=== PATIENT | female | born 1985 | race Caucasian/White ===

== ENCOUNTER 2018-03-01 15:45 | Emergency (ER) | payer OTHER, MEDICAID, SELFPAY | END 2018-03-01 17:01 | disposition home or self-care (01) | DX: Z71.1 Person with feared health complaint in whom no diagnosis is made (principal) | CPT/HCPCS: 99284 ==

== ENCOUNTER 2018-04-10 12:24 | Emergency (ER) | payer OTHER, MEDICAID, SELFPAY ==
[2018-04-10 13:08] VITALS: BP 101/67; PULSE 115; RESP 14; TEMP 37; BMI 21.9
[2018-04-10 13:30] LABS: Bacteria Urine None Seen
[2018-04-10 13:38] LABS: Culture Indicated Urine Cult Not Indicated; RBC Urine 1-5/HPF (0-5/HPF); Squamous Epithelial Cell Urine 5-10 /HPF; WBC Urine 5-10/HPF (0-5/HPF)
--- NOTE | 2018-04-10 13:56 | ED.FEMALEGU ---
HPI - Female Genitourinary <HEAVEN Amador - Last Filed: 04/10/18 19:54> General Chief complaint: Urogenital-Female Stated complaint: POSSIBLE KIDNEY INFECTION Time Seen by Provider: 04/10/18 13:56 Source: patient Mode of arrival: ambulatory History of Present Illness HPI Narrative: Patient presents with smelly urination. She states she has had a kidney infection before and does not think that is to that point yet, but is worried that it will be if she does not treat it. She denies any fevers, nausea, vomiting, diarrhea. She states she has not had a bowel movement since last week. She complains of bloatedness in her stomach. She denies any flank pain. However she states her entire abdomen feels tight. She denies any abdominal pain. She does admit to using both heroin and meth right before coming to the emergency department. She states she gets constipated because of her heroin use, in usually takes care of it with laxatives and high-fiber foods. However she notes that she forgot how long it has been that she has not had a bowel movement. She states that she is still passing gas and has done so today. Related Data Previous Rx's Medication Instructions Recorded nitrofurantoin monohyd/m-cryst 1 cap PO Q12H 7 Days #14 cap 04/10/18 [Macrobid] polyethylene glycol 3350 [Miralax] 17 gram PO DAILY PRN #119 gram NS 04/10/18 Allergies Allergy/AdvReac Type Severity Reaction Status Date / Time No Known Drug Allergies Allergy Verified 03/16/18 21:05 Review of Systems <HEAVEN Amador - Last Filed: 04/10/18 19:54> Review of Systems GENERAL: See HPI HEENT: Denies sinus pain, ear pain, sore throat, difficulty swallowing, dizziness. RESPIRATORY: Denies dyspnea, cough, wheezing, hemoptysis, sputum. CARDIOVASCULAR: Denies chest pain, palpitations, orthopnea, edema, GASTROINTESTINAL: See HPI : See HPI MUSCULOSKELETAL: denies weakness, joint pain, or bony pain SKIN: Denies rash, skin lesions, or other NEUROLOGIC: Denies weakness, headache, numbness, change in speech, confusion, seizures, incoordination. PSYCHIATRIC: No concerning psychosocial issues. 12 point review of systems is negative except for those stated above Exam <HEAVEN Amador - Last Filed: 04/10/18 19:54> Narrative Exam Narrative: GENERAL: This is a well-nourished, well-developed patient, in mild distress. HEAD: Atraumatic. Normocephalic. No temporal or scalp tenderness. EYES: Pupils equal round and reactive. Extraocular motions intact. No scleral icterus. No injection or drainage. ENT: Nose without bleeding, purulent drainage or septal hematoma. Throat without erythema, tonsillar hypertrophy or exudate. Uvula midline. Airway patent. NECK: Trachea midline. No JVD or lymphadenopathy. Supple, nontender, no meningeal signs. CARDIOVASCULAR: Regular rate and rhythm without murmurs, gallops, or rubs. RESPIRATORY: Clear to auscultation. Breath sounds equal bilaterally. No wheezes, rales, or rhonchi. GASTROINTESTINAL: Abdomen soft, non-tender, slightly distended, but soft. Active bowel sounds all 4 quadrants. No CVA tenderness bilaterally. No suprapubic pain on palpation. EXTREMITIES: No clubbing, cyanosis, or edema. No joint tenderness, effusion, or edema noted. BACK: Nontender without deformity or crepitance. No flank tenderness. NEURO: AOx3. SKIN: No rash or erythema. Initial Vital Signs Initial Vital Signs: Vital Signs Temperature 98.6 F 04/10/18 13:08 Pulse Rate 115 H 04/10/18 13:08 Respiratory Rate 14 04/10/18 13:08 Blood Pressure 101/67 04/10/18 13:08 <Mylene Daily DO - Last Filed: 04/11/18 07:27> Initial Vital Signs Initial Vital Signs: Vital Signs Temperature 98.6 F 04/10/18 13:08 Pulse Rate 115 H 04/10/18 13:08 Respiratory Rate 14 04/10/18 13:08 Blood Pressure 101/67 04/10/18 13:08 Course <HEAVEN Amador - Last Filed: 04/10/18 19:54> Orders Ordered: ED Orders 04/10/18 13:20 Urine Microscopic Stat 04/10/18 14:40 Urinalysis and Microscopic Stat Patient presents with ???weird swelling urine.??? She is afraid of developing a kidney infection. She used heroin and methamphetamine prior to arrival. She also complains of constipation x9 days, but has active bowel sounds and is passing gas. She gave a urine sample, but is contaminated with many squamous cells. Thus I requested a 2nd urine sample, which showed bacteria. I discussed signs and symptoms of worsening urinary tract infection including flank pain, nausea, vomiting, diarrhea or fever. I also discussed warning signs of abdominal pain, not passing gas. I discussed follow up with primary care. Vital Signs - 8 hr 04/10/18 13:08 04/10/18 15:05 Temperature 98.6 F Pulse Rate 115 H 101 H Respiratory Rate 14 14 Blood Pressure 101/67 Blood Pressure [Left Arm] 95/52 L Pulse Oximetry 100 <Mylene Daily DO - Last Filed: 04/11/18 07:27> Orders Ordered: ED Orders 04/10/18 13:20 Urine Microscopic Stat 04/10/18 14:40 Urinalysis and Microscopic Stat Vital Signs - 8 hr 04/10/18 13:08 04/10/18 15:05 Temperature 98.6 F Pulse Rate 115 H 101 H Respiratory Rate 14 14 Blood Pressure 101/67 Blood Pressure [Left Arm] 95/52 L Pulse Oximetry 100 MDM - Female Genitourinary <MOLLY Amador-BC - Last Filed: 04/10/18 19:54> Lab Data Attestation: I reviewed the patient's lab results. Lab Results 04/10/18 04/10/18 Range/Units 13:20 14:40 Urine Color Yellow Urine Appearance Clear Urine pH 7.0 (4.5-8.0) Ur Specific [place] 1.015 (1.000-1.035) Urine Protein Trace H (Negative) Urine Glucose (UA) Negative (Negative) g/dL Urine Ketones Negative (NEGATIVE) Urine Occult Blood 2+ H (Negative) Urine Nitrate Negative (Negative) Urine Bilirubin Negative (NEGATIVE) Urine Urobilinogen 1.0 (0.2) E.U./dL Ur Leukocyte Esterase Negative (NEGATIVE) Urine RBC 1-5/hpf 5-10/hpf H (0-5/HPF) Urine WBC 5-10/hpf H None seen (0-5/HPF) Ur Squamous Epith Cells 5-10 /hpf H 5-10 /hpf H Urine Bacteria None seen Moderate (10-30) H (None) Ur Culture Indicated? Cult not indicated Cult not indicated Micro UA Comment Not Reportable Not Reportable MDM Narrative Medical decision making narrative: Patient has not had a bowel movement in 9 days. She attributes this to her heroin use. However she does not have abdominal pain, is passing gas, is not vomiting, and has active bowel sounds. I gave her a prescription for MiraLax to use. She states she normally takes laxatives prior to 9 days, but forgot that she had not had a bowel movement. I am also treating her for urinary tract infection given the blood and bacteria in her urine. She does not have flank pain, is not nauseous vomiting or have diarrhea. She is afebrile as well. Thus I do not think she has a kidney infection at this time. She is slightly tachycardic with a heart rate of 115, however this can be attributed to use of methamphetamine prior to arrival. She appears well and states she feels fine. I am treating her with Macrobid b.i.d. for 7 days. Discussed follow-up and return precautions of fever, nausea vomiting diarrhea flank pain. <Mylene Daily, DO - Last Filed: 04/11/18 07:27> Lab Data Lab Results 04/10/18 04/10/18 Range/Units 13:20 14:40 Urine Color Yellow Urine Appearance Clear Urine pH 7.0 (4.5-8.0) Ur Specific [place] 1.015 (1.000-1.035) Urine Protein Trace H (Negative) Urine Glucose (UA) Negative (Negative) g/dL Urine Ketones Negative (NEGATIVE) Urine Occult Blood 2+ H (Negative) Urine Nitrate Negative (Negative) Urine Bilirubin Negative (NEGATIVE) Urine Urobilinogen 1.0 (0.2) E.U./dL Ur Leukocyte Esterase Negative (NEGATIVE) Urine RBC 1-5/hpf 5-10/hpf H (0-5/HPF) Urine WBC 5-10/hpf H None seen (0-5/HPF) Ur Squamous Epith Cells 5-10 /hpf H 5-10 /hpf H Urine Bacteria None seen Moderate (10-30) H (None) Ur Culture Indicated? Cult not indicated Cult not indicated Micro UA Comment Not Reportable Not Reportable Discharge Plan Departure Patient Disposition: Home, Self-Care Clinical Impression: Constipation, UTI (urinary tract infection) Discharge Date/Time: 04/10/18 15:15 Interventions: ED Discharge Assessment Last Done: 04/10/18 15:15 Instructions: DI for Urinary Tract Infection (UTI), DI for Constipation Activity Restrictions/Additional Instructions: I have given you a prescription for MiraLax to take once a day for constipation. I am also starting you on an antibiotic for urinary tract infection, Macrobid. Take this twice a day for 7 days. I want you to be seen again if you have any kidney pain, nausea, vomiting, diarrhea, fevers, start passing gas or have any acute abdominal pain. Prescriptions: New polyethylene glycol 3350 [Miralax] 17 gram/dose powder 17 gram PO DAILY PRN (Reason: constipation) Qty: 119 RF: 0 nitrofurantoin monohyd/m-cryst [Macrobid] 100 mg capsule 1 cap PO Q12H 7 Days Qty: 14 RF: 0 <Mylene Daily DO - Last Filed: 04/11/18 07:27> Cosign ED Attending Maddi Attestation: I was immediately available in the department for consultation. Documentation has been reviewed. I agree with assessment and plan.
--- NOTE | 2018-04-10 14:16 | PC.NURSE ---
Pt c/o low back and abdominal pain. She states she has not had a bowel movement in 9 days. She states she feels like she is having a kidney infection. She has been drinking a lot of water.
[2018-04-10 14:49] LABS: WBC Urine None Seen (0-5/HPF)
[2018-04-10 14:51] LABS: Appearance Urine UA CLEAR; Bilirubin Urine UA NEGATIVE (NEGATIVE); Color Urine UA YELLOW; Glucose Urine UA NEGATIVE (Negative); Ketones Urine UA NEGATIVE (NEGATIVE); Leukocyte Esterase Urine UA NEGATIVE (NEGATIVE); Nitrite Urine UA Negative (Negative); Occult Blood Urine UA 2+ (Negative); Protein Urine UA TRACE (Negative); Specific Gravity Urine UA 1.015 (1.000-1.035)
[2018-04-10 14:55] LABS: Bacteria Urine Moderate (10-30); RBC Urine 5-10/HPF (0-5/HPF); Squamous Epithelial Cell Urine 5-10 /HPF
[2018-04-10 14:56] LABS: Culture Indicated Urine Cult Not Indicated
[2018-04-10 15:05] VITALS: BP 95/52; PULSE 101; RESP 14; O2SAT 100
== END 2018-04-10 15:15 | disposition home or self-care (01) ==
PROVIDERS: Emergency Provider Nurse Practitioner Family
DX: N39.0 Urinary tract infection, site not specified (principal)
CPT/HCPCS: 81001; 81003; 81015; 81025; 99282; 99283

== ENCOUNTER 2018-04-16 21:20 | Emergency (ER) | payer OTHER, MEDICAID, SELFPAY ==
[2018-04-16 21:23] VITALS: BP 108/71; PULSE 104; RESP 18; TEMP 37.2; O2SAT 100; BMI 22.3
[2018-04-17] MEDS: SULFACETAMIDE 10% EYE-RIGHT
[2018-04-17 00:02] VITALS: BP 101/67; PULSE 91; RESP 16; O2SAT 100
--- NOTE | 2018-04-17 03:38 | ED_ITS ---
HPI - Eye Problem General Chief complaint: Eye Problems Stated complaint: RT EYE IS PINK AND DISCHARGE Time Seen by Provider: 04/16/18 21:33 Source: patient Mode of arrival: ambulatory Limitations: no limitations History of Present Illness HPI Narrative: Patient presents to the emergency department today with a chief complaint of 24 hr of worsening right eye irritation with redness, tearing and matting. She denies any injury or change in vision. She does wear contacts and removed her contact today chief complaint: eye pain and eye redness Onset (ago): day(s) Onset description: gradual Duration: constant Location: right eye Eye Symptoms: redness, pain and discharge Severity: mild If Pain, Quality: aching Context: contact lens use Associated symptoms: none Treatments Prior to Arrival: none Related Data Previous Rx's Medication Instructions Recorded polyethylene glycol 3350 [Miralax] 17 gram PO DAILY PRN #119 gram NS 04/10/18 Allergies Allergy/AdvReac Type Severity Reaction Status Date / Time No Known Drug Allergies Allergy Verified 03/16/18 21:05 Review of Systems Review of Systems All systems reviewed & are unremarkable except as noted in HPI and below Constitutional Denies chills, Denies fever(s), Denies lethargy and Denies weakness Eyes Denies change in vision, Reports eye discharge, Reports irritation and Denies loss of vision ENT Ears, Nose, Mouth, and Throat: Denies change in voice, Denies neck pain and Denies sore throat Cardiovascular Denies chest pain, Denies irregular heart rhythm, Denies lightheadedness, Denies palpitations, Denies dyspnea, Denies dyspnea on exertion and Denies orthopnea Respiratory Denies cough, Denies dyspnea, Denies dyspnea on exertion and Denies wheezing Gastrointestinal Gastrointestinal: Denies abdominal pain, Denies change in bowel habits, Denies diarrhea, Denies nausea and Denies vomiting Genitourinary Denies hematuria, Denies flank pain, Denies urinary incontinence and Denies urinary urgency Musculoskeletal Denies neck pain Integumentary/Breasts Denies pruritus, Denies erythema, Denies rash and Denies wounds Neurologic Denies confusion, Denies loss of vision and Denies weakness Psychiatric Denies anxiety, Denies confusion, Denies depression, Denies homicidal ideation and Denies suicidal ideation Endocrine Denies palpitations Hematologic/Lymphatic Denies easy bruising Allergic/Immunologic Denies wheezing PFSH Social History Smoking Status: Current some day smoker Exam Initial Vital Signs Initial Vital Signs: Vital Signs Temperature 98.9 F 04/16/18 21:23 Pulse Rate 104 H 04/16/18 21:23 Respiratory Rate 18 04/16/18 21:23 Blood Pressure 108/71 04/16/18 21:23 Pulse Oximetry 100 04/16/18 21:23 Const General: cooperative and well developed Nutritional Appearance: well nourished Orientation: alert, awake, oriented x3 and not confused HENKY Head: normocephalic and atraumatic Ears: external ears normal and TM's normal bilaterally Nose: external nose normal and No nasal discharge Face and sinus: sinuses nontender, face symmetric, no sinus tenderness and No dry mucous membranes Mouth: oral mucosae normal and moist mucous membranes Teeth and gingiva: dentition normal Throat: tonsils normal and uvula midline Eyes Visual Ovalle: normal visual ovalle by confrontation Eyelids: eyelids normal Conjunctivae: conjunctival abnormality (Redness) right Sclera: scleral abnormality (Redness) right Pupils: PERRL EOM: EOM intact bilaterally Direct ophthalmoscopy: normal light reflex Resp Effort & Inspection: normal respiratory effort, able to speak in complete sentences, no respiratory distress and no use of accessory muscles Auscultation: clear to auscultation bilaterally, no rales, no rhonchi and no wheezes GI Inspection: non-distended Palpation: soft, no hepatosplenomegaly, No guarding, No pulsatile mass and No tender Auscultation: normal bowel sounds Back/Spine/Pelvis Back: No CVA tenderness Cervical Spine: cervical ROM normal and No pain with cervical ROM Thoracic/Lumbar Spine: thoracic and lumbar spine normal to inspection Procedures Foreign Body EYE Time Out performed: Yes Location: eye (R) Topical anesthetic used: proparacaine Evidence of corneal penetration: No Procedure performed under: direct visualization with magnification and other ( Floor seen used under UV lamp and no dye uptake noted. No foreign body, abrasion or ulcerations noted) Course Orders Ordered: Discontinued Medications Sulfacetamide (Bleph-10) 0 drops EYE-RIGHT [id number] LIT Last Admin: 04/17/18 00:00 Dose: 1 bottle Vital Signs - 8 hr 04/16/18 21:23 04/17/18 00:02 Temperature 98.9 F Pulse Rate 104 H 91 H Respiratory Rate 18 16 Blood Pressure 108/71 Blood Pressure [Left Arm] 101/67 Pulse Oximetry 100 100 Discharge Plan Departure Patient Disposition: Home, Self-Care Clinical Impression: Conjunctivitis Discharge Date/Time: 04/17/18 00:04 Interventions: ED Discharge Assessment Last Done: 04/17/18 00:03 Instructions: Conjunctivitis Activity Restrictions/Additional Instructions: *You have been diagnosed with [ right eye conjunctivitis ] *What to do: *Take medications as directed *Follow up with your eye doctor this week for follow-up. 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
== END 2018-04-17 00:04 | disposition home or self-care (01) ==
PROVIDERS: Emergency Provider Emergency Medicine
DX: H10.9 Unspecified conjunctivitis (principal)
CPT/HCPCS: 99283

== ENCOUNTER 2019-07-05 20:42 | Emergency (ER) | payer OTHER, MEDICAID, SELFPAY ==
[2019-07-05 20:49] VITALS: BP 101/68; PULSE 94; RESP 15; TEMP 36.8; O2SAT 100; BMI 25.2
--- NOTE | 2019-07-05 21:08 | ED.URI ---
HPI - URI/Sore Throat General Chief Complaint: Upper Respiratory Symptoms Stated Complaint: COUGH CHEST CONGESTION Time Seen by Provider: 07/05/19 20:45 Source: patient Mode of arrival: ambulatory Limitations: no limitations History of Present Illness HPI Narrative: Patient is here for evaluation of upper respiratory symptoms to include cough, chest congestion, sore throat. Has not tried anything for the symptoms prior to arrival Related Data Previous Rx's Medication Instructions Recorded polyethylene glycol 3350 [Miralax] 17 gram PO DAILY PRN #119 gram NS 04/10/18 Allergies Allergy/AdvReac Type Severity Reaction Status Date / Time No Known Drug Allergies Allergy Verified 07/05/19 20:49 Review of Systems Constitutional Denies fever(s) and Denies headache(s) ENT Ears, Nose, Mouth, and Throat: Denies vertigo, Denies dizziness, Denies headache(s), Denies neck pain, Reports sinus pressure and Reports sore throat Cardiovascular Denies chest pain and Denies dyspnea Respiratory Reports cough and Denies dyspnea Gastrointestinal Gastrointestinal: Denies abdominal pain, Denies nausea and Denies vomiting Musculoskeletal Denies neck pain Integumentary/Breasts Denies lesions and Denies rash Neurologic Denies vertigo, Denies dizziness and Denies headache(s) Hematologic/Lymphatic Denies easy bleeding and Denies easy bruising PFSH Medical History Patient denies medical problems (Acute) Social History Smoking Status: Current some day smoker Social History Smoking Status: Current some day smoker Exam Initial Vital Signs Initial Vital Signs: Vital Signs Temperature 98.3 F 07/05/19 20:49 Pulse Rate 94 H 07/05/19 20:49 Respiratory Rate 15 07/05/19 20:49 Blood Pressure 101/68 07/05/19 20:49 Pulse Oximetry 100 07/05/19 20:49 Const General: cooperative, comfortable, well developed, well groomed and No acute distress Orientation: alert and awake HENMT Head: normal to inspection and normocephalic Ears: TM's normal bilaterally Nose: external nose normal Face and sinus: normal facial exam Mouth: oral mucosae normal Throat: uvula midline, uvula not displaced and uvular edema Resp Effort & Inspection: normal respiratory effort Auscultation: clear to auscultation bilaterally Cardio Rate: regular rate Rhythm: regular rhythm Skin Lesions: no lesions Rashes: no rashes Neuro General: alert, awake and oriented x3 Cognition: normal cognition Speech: speech normal Extrem General: normal to inspection and capillary refill normal Course Vital Signs - 8 hr 07/05/19 20:49 Temperature 98.3 F Pulse Rate 94 H Respiratory Rate 15 Blood Pressure 101/68 Pulse Oximetry 100 MDM - URI/Sore Throat MDM Narrative Medical decision making narrative: No respiratory distress. exam is relatively unremarkable. suspect URI. Will send home with instructions on the use of decongestants. No indication for antibiotics. Patient given turn precautions of all instructions. She expressed understanding agreement plan.. Discharge Plan Departure Patient Disposition: Home Clinical Impression: Upper respiratory infection Qualifiers: URI type: unspecified URI Qualified Code(s): J06.9 - Acute upper respiratory infection, unspecified Discharge Date/Time: 07/05/19 21:34 Interventions: ED Discharge Assessment Last Done: 07/05/19 21:34 Instructions: DI for Viral Upper Respiratory Infection -- Adult Activity Restrictions/Additional Instructions: I do recommend you start taking a decongestant such as Claritin or Idania or Zyrtec. You can buy these [id number]. I also recommend you at a nasal spray such as Flonase or Nasonex. You can also by these [id number]. The generic version of these medications is okay as well. contact your primary doctor for follow-up. Recommend that you consider cutting back/stop Vaping. Return to the emergency department for any new or worsening symptoms Prescriptions: No Action polyethylene glycol 3350 [Miralax] 17 gram/dose powder 17 gram PO DAILY PRN (Reason: constipation) Qty: 119 RF: 0
== END 2019-07-05 21:34 | disposition home or self-care (01) ==
PROVIDERS: Emergency Provider Emergency Medicine
DX: J06.9 Acute upper respiratory infection, unspecified (principal)
CPT/HCPCS: 99282

== ENCOUNTER 2019-12-17 17:56 | Emergency (ER) | payer OTHER, MEDICAID, SELFPAY ==
[2019-12-17 18:21] VITALS: BP 109/69; PULSE 79; RESP 12; TEMP 36.2; O2SAT 99
[2019-12-17] MEDS: raNITIdine 150 MG CAPSULE PO (19:02)
[2019-12-17] MEDS: diphenhydrAMINE 25 MG TABLET 50 MG PO (19:03)
[2019-12-17] MEDS: predniSONE 20 MG TABLET 40 MG PO (19:03)
[2019-12-17 20:24] VITALS: PULSE 64; RESP 14; O2SAT 100
--- NOTE | 2019-12-18 00:01 | ED_ITS ---
HPI - Allergic Reaction <MARGARETTE Rincon - Last Filed: 12/18/19 00:13> General Chief complaint: Allergic Reaction Stated complaint: swollen lip, possible allergic rxn Time Seen by Provider: 12/17/19 18:25 Source: patient Mode of arrival: Ambulatory Limitations: no limitations History of Present Illness HPI narrative: This is a 34-year-old female, current vaper, who presents to ED with upper lip swelling and burning sensation since 3:00 p.m. while she was at work (at least last 4 hrs). Patient denies any new exposure to soap, make up, cream, medications or foods that she is aware of. Patient denies difficulty breathing, short of breath, swelling to throat/tongue, nausea or vomiting, feeling faint or dysplasia. Patient is able to speak clearly full sentences without difficulty without stridor. Patient states she works at [employer] and comes in contact with many different products and items throughout the day. Patient recently had breast implant surgery and a course of antibiotic medications yesterday. Currently uses Naprosyn for pain management. Related Data Previous Rx's Medication Instructions Recorded polyethylene glycol 3350 [Miralax] 17 gram PO DAILY PRN #119 gram NS 04/10/18 famotidine [Pepcid] 20 mg PO DAILY #10 tab 12/17/19 prednisone 50 mg PO DAILY 4 Days #4 tab 12/17/19 Allergies Allergy/AdvReac Type Severity Reaction Status Date / Time No Known Drug Allergies Allergy Verified 07/05/19 20:49 Review of Systems <MARGARETTE Rincon - Last Filed: 12/18/19 00:13> Review of Systems Narrative: General: Denies fever, chills, fatigue, malaise, sweats. HEENT: Denies sinus pain, ear pain, sore throat, difficulty swallowing, dizziness, (+) upper lip swelling. Respiratory: Denies dyspnea, cough, wheezing, hemoptysis, sputum. Cardiovascular: Denies chest pain, palpitations, orthopnea, edema. Gastrointestinal: Denies nausea, vomiting, abdominal pain, diarrhea, constipation, melena. : Denies dysuria, frequency, incontinence, hematuria, urinary retention. Musculoskeletal: breast tenderness from recent breast implants. Skin: Denies rash, skin lesions, or other. Neurologic: Denies weakness, headache, numbness, change in speech, confusion, seizures, incoordination. Psychiatric: No concerning psychosocial issues. 12-point review of systems is negative except for those stated above. Patient History <MARGARETTE Rincon - Last Filed: 12/18/19 00:13> Medical History Breast implant status (Acute) Patient denies medical problems (Acute) Social History Smoking Status: Current some day smoker Smokeless tobacco user: other Smoking Status: Current some day smoker alcohol intake frequency: 0-2 drinks per day Substance Use Type: does not use Exam <MARGARETTE Rincon - Last Filed: 12/18/19 00:13> Narrative Exam Narrative: GEN: Alert, oriented x 3, well appearing and nourished, and in no acute distress. Head: Normal cephalic, atraumatic. No scalp or temporal tenderness, palpable mass or rash. EYES: Pupils are equal, round, and reactive to light and accommodation. Extraocular muscles are intact bilaterally. There is no subconjunctival hemorrhage, exudate and sclera non-icteric. ENT: Bilateral auditory canals and tympanic membranes clear. Hearing grossly intact. Nose without bleeding, purulent discharge or deviation. Mucous membrane moist, no mucosal lesion. Throat without erythema, tonsillar hypertrophy or exudate or oropharyngeal edema. Uvula in midline, airway patent. Mild swelling to upper lip. Neck: Trachea in midline. No JVD, non-tender without lymphadenopathy. No masses or thyroid megaly. Supple, non-tender and no meningeal signs. CARDIAC: Normal regular rate and rhythm without murmurs, gallops, or rubs. No chest wall tenderness. No peripheral edema, cyanosis or pallor. Capillary refill is less than 2 seconds. RESPIRATORY: Lungs are clear to auscultate bilaterally. No cough, wheezes, rales, or rhonchi. No stridor, respiratory distress, increase work of breathing, or accessary muscle used. Clear speech and able to speak full sentences. ABD: Abdomen soft, nontender and non-distended. No guarding or rebound tenderness to palpate. Bowel sounds are normal in all 4 quadrants. There is no palpable masses or organomegaly. EXT: Full painless ROM of all extremities with no loss of sensation, strength, effusion or edema. SKIN: Warm, dry, normal color for patient. No erythema, lesions or rash over visible areas. BACK: Nontender without deformity or crepitance. No flank tenderness. NEUROLOGICAL: Alert and oriented to place, time and person. Sensation and motor function intact bilaterally. No facial droops, dysphasia. PSYCHIATRIC: Good judgement and reason, without hallucinations, abnormal affect or abnormal behaviors during the examination. Initial Vital Signs Initial Vital Signs: Vital Signs Temperature 97.2 F L 12/17/19 18:21 Pulse Rate 79 12/17/19 18:21 Respiratory Rate 12 12/17/19 18:21 Blood Pressure 109/69 12/17/19 18:21 Pulse Oximetry 99 12/17/19 18:21 <Chris Madden DO - Last Filed: 12/18/19 18:28> Initial Vital Signs Initial Vital Signs: Vital Signs Temperature 97.2 F L 12/17/19 18:21 Pulse Rate 79 12/17/19 18:21 Respiratory Rate 12 12/17/19 18:21 Blood Pressure 109/69 12/17/19 18:21 Pulse Oximetry 99 12/17/19 18:21 Scores <MARGARETTE Rincon - Last Filed: 12/18/19 00:13> GCS Brigid coma scale eye opening: Spontaneous Brigid coma scale verbal response: Orientated [place] coma scale motor response: Obey commands Brigid coma scale total score: 15 Course <MARGARETTE Rincon - Last Filed: 12/18/19 00:13> Orders Ordered: Discontinued Medications Diphenhydramine HCl (Benadryl) 50 mg PO NOW ONE Stop: 12/17/19 18:33 Last Admin: 12/17/19 19:03 Dose: 50 mg Documented by: AMANDA Prednisone (Deltasone) 40 mg PO NOW ONE Stop: 12/17/19 18:33 Last Admin: 12/17/19 19:03 Dose: 40 mg Documented by: AMANDA Ranitidine HCl (Zantac) 150 mg PO NOW ONE Stop: 12/17/19 18:33 Last Admin: 12/17/19 19:02 Dose: 150 mg Documented by: AMANDA Vital Signs Vital signs: Vital Signs - 8 hr 12/17/19 18:21 12/17/19 20:24 Temperature 97.2 F L Pulse Rate 79 64 Respiratory Rate 12 14 Blood Pressure 109/69 Pulse Oximetry 99 100 <Chris Madden DO - Last Filed: 12/18/19 18:28> Orders Ordered: Discontinued Medications Diphenhydramine HCl (Benadryl) 50 mg PO NOW ONE Stop: 12/17/19 18:33 Last Admin: 12/17/19 19:03 Dose: 50 mg Documented by: AMANDA Prednisone (Deltasone) 40 mg PO NOW ONE Stop: 12/17/19 18:33 Last Admin: 12/17/19 19:03 Dose: 40 mg Documented by: AMANDA Ranitidine HCl (Zantac) 150 mg PO NOW ONE Stop: 12/17/19 18:33 Last Admin: 12/17/19 19:02 Dose: 150 mg Documented by: AMANDA Vital Signs Vital signs: Vital Signs - 8 hr 12/17/19 18:21 12/17/19 20:24 Temperature 97.2 F L Pulse Rate 79 64 Respiratory Rate 12 14 Blood Pressure 109/69 Pulse Oximetry 99 100 [facility] - Allergic Reaction <MARGARETTE Rincon - Last Filed: 12/18/19 00:13> Differential Diagnosis Differential diagnosis: Likely anaphylaxis, allergic reaction and angioedema Medical Records Attestation: I reviewed the patient's medical records. [facility] Narrative Medical decision making narrative: This is a 34 year female who presents to ED with upper lip swelling for last 4+ hours. Patient's lung sounds are clear to auscultate bilaterally. No swelling to tongue or pharynx. Patient was able to manage her oral secretion without difficulty and able to speak full sentences without difficulty or stridor. Patient had stable vital signs. There was no nausea or vomiting. Even though patient had upper lip swelling there is no signs of anaphylactic shock. Patient was medicated with Benadryl, Zantac, prednisone while in ED which improved her symptoms prior discharged to home. Patient discharged to home with prednisone for next 4 days and Pepcid to take daily along [id number] Benadryl. Strict return precautions were discussed with the patient and advised to follow-up with PCP next 2-3 days. Patient verbalized understanding and agrees with the treatment plan. Discharge Plan Departure Patient Disposition: Home Clinical Impression: Swelling of upper lip Allergic reaction Qualifiers: Encounter type: initial encounter Qualified Code(s): T78.40XA - Allergy, unspecified, initial encounter Discharge Date/Time: 12/17/19 20:25 Instructions: DI for General Allergic Reactions Activity Restrictions/Additional Instructions: You have been diagnosed with [upper lip swelling without difficulty breathing/swelling to the throat/tongue. It is likely from an allergy reaction of unknown exposure. After you're medicated with Benadryl, prednisone and Zantac your lives swelling is improving.]. What to do: *Take your medications as directed. Please continue to take prednisone 50 mg daily for next 4 days. Pepcid, histamin blade, daily for next 10 days. Benadryl as needed from 25 mg to 50 mg 3 to 4 times a day. Benadryl may cause drowsiness so please take precaution not driving, drinking alcohol or operating heavy equipments. *Follow up with your primary care provider in 2-3 days, call for an appointment. Let them know you were seen in the ED and that we asked you to be seen in follow up. You must call 911 if you have difficulty breathing, feel like fainting, nausea or vomiting, throat tightness, swelling to her tongue with your symptoms. *Return to ED if you have any new, worsening, or concerning symptoms, such as chest pain, breathing difficulty, unable to tolerate fluids, or any acute concerns. Prescriptions: New prednisone 50 mg tablet 50 mg PO DAILY 4 Days Qty: 4 RF: 0 famotidine [Pepcid] 20 mg tablet 20 mg PO DAILY Qty: 10 RF: 0 No Action polyethylene glycol 3350 [Miralax] 17 gram/dose powder 17 gram PO DAILY PRN (Reason: constipation) Qty: 119 RF: 0 <Chris Madden, DO - Last Filed: 12/18/19 18:28> Sign Out Provider Sign Out Attestation: Dr Madden Co-Sign Statement: I was available for consultation during this patient's emergency department visit. This chart is signed by myself for administrative purposes only. I did not have direct contact with this patient during this visit. They were seen independently by the APC.
== END 2019-12-17 20:25 | disposition home or self-care (01) ==
PROVIDERS: Emergency Provider Nurse Practitioner Family
DX: T78.40XA Allergy, unspecified, initial encounter (principal); R22.0 Localized swelling, mass and lump, head
CPT/HCPCS: 99283